=== PATIENT | male | born 1950 | race Caucasian/White ===

== ENCOUNTER 2018-07-19 06:56 | Day surgery (SDC) | payer MEDICARE, OTHER ==
[~2018-07-19] VITALS: Ht 177.8 cm; Wt 90.7 kg
[2018-07-19 07:38] VITALS: BP 170/50; PULSE 48; TEMP 97.8
[2018-07-19] MEDS ORDERED: PRINIVIL40 MG PO (07:47)
[2018-07-19] MEDS ORDERED: ZYLOPRIM 300MG300 MG PO (07:48)
[2018-07-19] MEDS ORDERED: VITAMINC1000TA PO (07:51)
[2018-07-19] MEDS ORDERED: ALEVE LIQCAPS PO (07:53)
[2018-07-19] MEDS ORDERED: HEMP OIL (07:55)
[2018-07-19] MEDS ORDERED: COUMADIN 5MG5 MG/TAB PO (08:14)
[2018-07-19 09:15] VITALS: BP 117/55; PULSE 51; TEMP 97.7
--- NOTE | 2018-07-19 09:15 | NUR ---
Pt to [facility] via cart from [place]. Pt awake and alert. Pt ambulates to recliner with stand by assitance. Warm blanket provided. VSS. in room. Pudding, water, and coffee given per pt request. Pt denies pain or nausea. Call light within reach.
[2018-07-19 09:30] VITALS: BP 126/56; PULSE 47
--- NOTE | 2018-07-19 09:30 | NUR ---
Pt tolerating food and fluids without difficulties. Will continue to monitor. Call light within reach.
[2018-07-19 09:45] VITALS: BP 150/70; PULSE 49
--- NOTE | 2018-07-19 09:45 | NUR ---
Pt continues to rest. Denies needs. Call light within reach.
--- NOTE | 2018-07-19 10:00 | NUR ---
IV site discontinued with all parts intact. Discharge instructions reviewed. Pt voices understanding. Pt up to dress. Call light within reach.
--- NOTE | 2018-07-19 10:15 | NUR ---
Pt escorted to private car via wheel chair. Pt accompanied home by his .
== END 2018-07-19 10:15 | disposition home or self-care (01) ==
LOC: SDCO 06:56
DX: K55.8 Other vascular disorders of intestine (principal); Z86.010 Personal history of colon polyps; K57.30 Diverticulosis of large intestine without perforation or abscess without bleeding; D50.0 Iron deficiency anemia secondary to blood loss (chronic); K21.0 Gastro-esophageal reflux disease with esophagitis; K25.7 Chronic gastric ulcer without hemorrhage or perforation; D69.9 Hemorrhagic condition, unspecified; Z79.01 Long term (current) use of anticoagulants; Z95.2 Presence of prosthetic heart valve; M19.90 Unspecified osteoarthritis, unspecified site; K92.1 Melena
CPT/HCPCS: J2704; J7030